=== PATIENT | male | born 1940 | race Caucasian/White ===

== ENCOUNTER 2020-06-18 02:42 | Outpatient (CLI) | payer MEDICARE, SELFPAY ==
[2020-06-18 18:02] LABS: SARS-CoV-2 RNA PCR Negative
== END 2020-06-18 02:43 | disposition home or self-care (01) ==
LOC: ANHCOVIDDT 02:43
PROVIDERS: PCP Emergency Medicine; Visit Provider Specialist
DX: Z01.812 Encounter for preprocedural laboratory examination (principal); Z20.828 Contact with and (suspected) exposure to other viral communicable diseases
CPT/HCPCS: 87635; C9803; U0003

== ENCOUNTER 2020-06-21 01:31 | Day surgery (SDC) | payer MEDICARE, SELFPAY ==
[2020-06-18 13:01] VITALS: BMI 27.1
[2020-06-21] VITALS (9 sets, daily range): BP systolic 97–120; BP diastolic 60–86; PULSE 70–78; RESP 17–23; TEMP 36.4; O2SAT 92–100
--- NOTE | 2020-06-21 | ECHO_ITS ---
Patient Info Name: Jhony Grayson Age: 80 years : 1940 Gender: Male Ht: 72 in Wt: 200 lbs BSA: 2.16 m2 HR: 136 bpm Heart Rhythm: Paced Exam Date: 06/21/2020 8:43 AM Exam Location: [facility] Patient Status: Outpatient Admit Date: 06/21/2020 Staff Ordering Physician: Tito Rodriguez MD Tie Hacker: Edward Fraser RDCS, RT Attending Provider: Tito Rodriguez MD Referring Physician: Jennifer NUÑEZ; Exam Type: CA echo transesophageal Study Info Indications I35.0 - Nonrheumatic aortic (valve) stenosis Complete two-dimensional, color flow and Doppler transesophageal study is performed. Summary 1. Left ventricular chamber dimension is severely enlarged. 2. Global systolic function is severely depressed. 3. There is no regurgitation of the bioprosthetic aortic valve. 4. The prosthetic valve leaflets appear to exhibit good leaflet excursion. Valve is not stenotic in appearance. Left Ventricle Left ventricular chamber dimension is severely enlarged. Global systolic function is severely depressed. Right Ventricle Right ventricular chamber dimension is mildly enlarged. Linear artifact in right ventricle suggestive of catheter(s), pacemaker lead(s), or ICD lead(s). Left Atria Left atrial chamber dimension is severely enlarged. Right Atria Right atrial chamber dimension is mildly enlarged. Aortic Valve There is Empty bioprosthetic aortic valve stenosis. There is no regurgitation of the bioprosthetic aortic valve. The prosthetic valve leaflets appear to exhibit good leaflet excursion. Valve is not stenotic in appearance. Pulmonic Valve The pulmonic valve is not well visualized. Mitral Valve The mitral valve has normal leaflets. Tricuspid Valve The tricuspid valve leaflets are not well visualized. Pericardium/Pleural The pericardium appears normal. Inferior Vena Cava Not well visualized inferior vena cava with Empty collapse upon inspiration consistent with Empty right atrial pressure, Empty. Aorta The aortic root size at the sinus of Valsalva is normal. Report Signatures
--- NOTE | 2020-06-21 08:48 | WPDMODSED ---
Moderate Sedation Note-Pt Data Patient Data Diagnosis: Prosthetic aortic valve stenosis ischemic cardiomyopathy Present Complaint: exertional dyspnea Procedure to be performed/Plan: transesophageal echocardiogram Allergies Allergy/AdvReac Type Severity Reaction Status Date / Time No Known Allergies Allergy Unverified 06/18/20 13:07 Home Medications Medication Instructions Recorded Confirmed Type meloxicam 7.5 mg tablet 7.5 mg PO DAILY 08/05/19 06/18/20 History pravastatin 80 mg tablet 80 mg PO DAILY 08/05/19 06/18/20 History aspirin 81 mg tablet 81 mg PO DAILY 09/16/19 06/18/20 History carvedilol 6.25 mg tablet 6.25 mg PO Q12H 09/16/19 06/18/20 History sacubitril 49 mg-valsartan 51 mg See Rx Instructions .ROUTE .COMPLEX 12/17/19 06/18/20 History tablet insulin aspar prot-insulin aspart See Rx Instructions .ROUTE 12/23/19 06/18/20 Rx 100 unit/mL (70-30) subcutaneous .COMPLEX #60 ml pen pen needle, diabetic 31 gauge x #200 each 12/23/19 Rx 3/16 spironolactone 25 mg tablet 25 mg PO DAILY #90 tablet 01/20/20 06/18/20 Rx duloxetine 30 mg capsule,delayed 30 mg PO DAILY #90 cap 01/21/20 06/18/20 Rx release tamsulosin 0.4 mg capsule 0.4 mg PO DAILY #90 cap 02/18/20 06/18/20 Rx sitagliptin 50 mg-metformin 500 mg See Rx Instructions .ROUTE 05/16/20 06/18/20 Rx tablet .COMPLEX #180 tablet furosemide 40 mg PO DAILY 06/18/20 06/18/20 History Sedation/Anesthesia: No previous sedation/anesthesia problems (including family history). [facility] Past Medical History Medical History CHF (congestive heart failure) Diabetes mellitus HTN (hypertension) Family History Family History Mother Family history of malignant neoplasm of bone Family history of malignant neoplasm, Onset Age: 31 Father Family history of coronary artery disease, Onset Age: 84 Other Diabetes mellitus Family history of cardiovascular disease Social History Social History Smoking status: Never smoker Alcohol intake: never Substance use: never Living arrangements: with family Gender identity (if verbalized by the patient): Male Sexual Orientation (if Verbalized by the Patient): Straight or Heterosexual Spiritual care concerns: No Mod Sed Physical Exam Physical Exam Pre Procedural Exam: Normal: Neck, Throat, Airway, Heart Rate, Heart Rhythm, Neuro Exam and Extremities and Variation: Appearance ( elderly white male no acute distress), Lungs ( breath sounds mildly diminished but otherwise clear) and Heart Size ( PMI enlarged and laterally displaced) Hours since solid foods: 12 Hours since liquid intake: 12 Internal Medicine - PN: Obj Da Vital Signs Vital Signs: Vital Signs - 24 hr 06/21/20 07:34 Temperature 36.4 C Pulse Rate 78 Respiratory Rate 17 Blood Pressure 98/62 L Pulse Oximetry 100 ASA Classification/Sedation ASA Classification/Sedation ASA Class: III Emergent: No Risks: Risks, benefits and alternatives explained and patient/family accepted plan for sedation. Patient re-evaluated immediately prior to sedation.
--- NOTE | 2020-06-21 09:08 | WPDCARDPROC ---
Cardiac Cath Procedure Note Date of procedure:: 06/21/20 Performing physician:: Tito Rodriguez MD Indication:: aortic valve replacement concern regarding prosthetic aortic stenosis ischemic cardiomyopathy Brief clinical history:: this is 80-year-old man with ischemic cardiomyopathy who has a defibrillator he also has a bioprosthetic aortic valve which is been implanted in 2005. There is echocardiographic evidence to suggest prosthetic aortic stenosis. He also has low ejection fraction. Procedure Procedure performed:: Transesophageal echocardiogram Sedation/Medication given:: fentanyl 50 mg Versed 4 mg case start time 8:51 a.m. case end time 9:07 a.m. sedation provided by Mariangel Barker RN, trained observer Estimated blood loss:: no blood loss Procedure note:: patient was brought to the cardiac catheterization lab holding area in the postabsorptive straight state. The oropharynx was sprayed with benzocaine. Following this a bite block was placed into position and transesophageal echocardiography was performed easily and without complication. The esophagus was intubated the examination was primarily directed towards imaging the aortic valve prosthesis. The aortic valve prosthesis was seen on 2D imaging there was color Doppler interrogation of the prosthesis and LV outflow tract and planimetry performed of the valve area. Following completion of the procedure the REBECA probe was withdrawn and the patient was recovered uneventfully. Procedure was uncomplicated. Findings:: The left atrium is severely dilated. The mitral valve leaflets appear unremarkable. The left ventricle is markedly dilated with very poor systolic contractility all segments are hypocontractile this is a global process ejection fraction is in the vicinity of 15%. The aortic valve is a bioprosthetic structure which was anterior wound visualized in several projections. Visualization of the leaflets was somewhat challenging due to acoustical shadowing with the struts. The leaflets however appear to be relatively mobile and easily pliable. They do not appear to be significantly restricted on visual inspection. There is no color Doppler evidence of aortic valve or perivalvular regurgitation. Direct planimetry of the valve was challenging as it was difficult to visualize the orifice with the struts. Valve area measures at least 1.0 cm2. Once again the leaflets are mobile and exhibit exhibit good leaflet excursion. Conclusion:: Transesophageal echocardiographic examination of the for of bioprosthetic aortic valve demonstrating the leaflets to have a mobile and pliable appearance with no Doppler evidence of regurgitation. Aortic valve area was plan admit her at 1.0 cm2 acoustical shadowing with the valve struts across the valve orifice. Visually this valve does not appear to be significantly stenotic. Tito Rodriguez MD FACC
--- NOTE | 2020-06-21 11:10 | SUR.PHASEII ---
1045-pt given D/C orders and instructions. Questions answered and verbalized understanding. AOx4. PIV removed intact. Taken via wheelchair to waiting vehicle. No distress noted or verbalized at time of departure.
== END 2020-06-21 11:00 | disposition home or self-care (01) ==
PROVIDERS: PCP Emergency Medicine; Visit Provider Specialist
PROC: (CPT 93312; principal; 2020-06-21 08:30)
DX: R93.1 Abnormal findings on diagnostic imaging of heart and coronary circulation (principal); R06.09 Other forms of dyspnea; I25.5 Ischemic cardiomyopathy; Z95.2 Presence of prosthetic heart valve; Z95.810 Presence of automatic (implantable) cardiac defibrillator; I11.0 Hypertensive heart disease with heart failure; I50.9 Heart failure, unspecified; E11.9 Type 2 diabetes mellitus without complications; Z79.4 Long term (current) use of insulin; Z79.84 Long term (current) use of oral hypoglycemic drugs; Z79.82 Long term (current) use of aspirin
CPT/HCPCS: 93312; 93320; 93325; J2250; J3010; J7040

== ENCOUNTER 2021-05-05 10:58 | Outpatient (CLI) | payer MEDICARE, SELFPAY ==
--- NOTE | 2021-05-05 11:30 | NEURO_ITS ---
Impression: # Complains of numbness of left thumb and index finger. # Severe left Carpal Tunnel Syndrome. 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 # Needle/EMG exam mildly abnormal in left APB. Nerve Conduction Studies Anti Sensory Summary Table Stim Site NR Peak (ms) P-T Amp (?V) Site1 Site2 Delta-P (ms) Dist (cm) Erich (m/s) Left Median Anti Sensory (2-3nd Digit) NO RESPONSE Wrist 8.5 13.6 Wrist 2-3nd Digit 8.5 14.0 16 Wrist NR Wrist 2-3nd Digit 8.5 14.0 16 Left Radial Anti Sensory (Base 1st Digit) Wrist 2.7 12.8 Wrist Base 1st Digit 2.7 0.0 Left Ulnar Anti Sensory (5th Digit) Wrist 2.9 42.8 Wrist 5th Digit 2.9 14.0 48 Motor Summary Table Stim Site NR Onset (ms) O-P Amp (mV) Site1 Site2 Delta-0 (ms) Dist (cm) Erich (m/s) Left Median Motor (Abd Poll Brev) Wrist 9.1 1.6 Elbow Wrist 5.5 30.0 55 Elbow 14.6 0.9 Left Ulnar Motor (Abd Dig Minimi) Wrist 2.7 1.4 A Elbow Wrist 6.8 33.0 49 A Elbow 9.5 1.2 B Elbow Wrist 4.6 24.0 52 B Elbow 7.3 0.6 F Wave Studies NR F-Lat (ms) L-R F-Lat (ms) Left Median (Mrkrs) (Abd Poll Brev) 33.22 Left Ulnar (Mrkrs) (Abd Dig Min) 29.85 EMG Side Muscle Nerve Root Ins Act Fibs Amp Dur Recrt Comment Left 1stDorInt Ulnar C8-T1 Nml Nml Nml Nml Nml Left Ext Indicis Radial (Post Int) C7-8 Nml Nml Nml Nml Nml Left Ext Digitorum Radial (Post Int) C7-8 Nml Nml Nml Nml Nml Left BrachioRad Radial C5-6 Nml Nml Nml Nml Nml Left PronatorTeres Median C6-7 Nml Nml Nml Nml Nml Left Abd Poll Brev Median C8-T1 Nml Nml Incr >12ms Reduced MTDD
== END 2021-05-05 10:59 | disposition home or self-care (01) ==
LOC: ANHNEURO 10:59
PROVIDERS: PCP Internal Medicine; Visit Provider Internal Medicine
DX: G56.02 Carpal tunnel syndrome, left upper limb (principal); G56.22 Lesion of ulnar nerve, left upper limb; R20.0 Anesthesia of skin; R20.2 Paresthesia of skin
CPT/HCPCS: 95886; 95909

== ENCOUNTER 2021-06-30 09:53 | Outpatient (CLI) | payer MEDICARE, SELFPAY ==
--- NOTE | 2021-06-30 10:00 | ECG_ITS ---
Measurements Intervals [place] Rate: 74 P: 115 TX: 201 QRS: -76 QRSD: 218 T: 111 QT: 467 QTc: 519 Interpretive Statements ELECTRONIC ATRIAL PACEMAKER ELECTRONIC VENTRICULAR PACEMAKER BASELINE ARTIFACT- I, II, AVR NO FURTHER INTERPRETATION IS POSSIBLE ATYPICAL ECG Electronically Signed On 06-30-2021 19:27:56 [employer]ANGER [employer]ER by Harshal Delatorre D.O.
[2021-06-30 11:30] LABS: Anion Gap 8 mmol/L (8-16); Blood Urea Nitrogen 39 mg/dL (9-20); Calcium 9.6 mg/dL (8.4-10.2); Carbon Dioxide 30 mmol/L (22-30); Chloride 103 mmol/L (98-107); Estimated Glomerular Filt Rate 45; Glucose 165 mg/dL (65-110); Potassium 4.8 mmol/L (3.4-5.0); Sodium 141 mmol/L (137-145)
== END 2021-06-30 09:54 | disposition home or self-care (01) ==
LOC: ANHSURGERY 09:58
PROVIDERS: Anesthesiology; PCP Internal Medicine; Visit Provider Orthopaedic Surgery
DX: Z01.818 Encounter for other preprocedural examination (principal); E11.9 Type 2 diabetes mellitus without complications; I10 Essential (primary) hypertension; R94.31 Abnormal electrocardiogram [ECG] [EKG]
CPT/HCPCS: 36415; 80048; 93005

== ENCOUNTER 2021-07-05 01:51 | Day surgery (SDC) | payer MEDICARE, SELFPAY ==
[2021-06-29 08:33] VITALS: BMI 27.1
--- NOTE | 2021-06-29 11:12 | PC.NURSE ---
Report to the Outpatient Waiting Room, entrance under the green pavilion located off [facility], at time ___12:00PM____ on date _07/05/21 . OR Time: ___2:00PM____. - You and your visitor will be asked a series of questions to screen for COVID 19 for your protection. - A mask is required within the hospital. - Only one visitor is allowed at this time. Patient visitors will be guided where to wait when not with patient. Preoperative COVID Testing Requirements: No COVID Test needed if: (proof is required; if not received patient will have Rapid Test prior to entry) - Patient has received COVID Vaccine at least 14 days prior to procedure date or - Patient has positive COVID test result within last 90 days of surgery date. COVID Test needed if above criteria is not met If not COVID vaccinated a COVID test must be conducted within 72 hours of surgery and patient is asked to isolate self from time of testing until procedure. You will go to the [facility] for your COVID testing. The [facility] Testing site is located at the corner of [address] [facility]. You will only be called if COVID results are positive and your surgeon may reschedule your elective surgery date. Patients may have clear liquids (water, carbonated beverages, clear teas, apple juice) until 3 hours prior to surgery with a maximum of 20 ounces. - No food from midnight until time of surgery - Infants may have breast milk until 4 hours before surgery, infant formula 6 hours prior to surgery. - Children will be allowed to drink immediately following surgery. If applicable, please bring a bottle or sippy cup to assist with drinking. Juice, water, soda, and popsicles are readily available. For infants on formula, please bring formula the day of surgery. Pacifiers are allowed. Take the following medications with a SIP of water the morning of surgery: ___CARVEDILOL, 1/2 DOSE INSULIN(12 UNITS) Medications to discontinue per physician ____HOLD ASPIRIN PER MD( CALLING OFFICE) Date to take last dose Please no make-up, nail tamazight, hairspray, perfume, deodorant, or body powder the day of surgery. No jewelry (including any body piercings) or valuables the day of surgery, leave them at home. Please take a shower or bath the night before, or the morning of, surgery with an antibacterial soap. Wear comfortable, loose fitting clothing. Children are encouraged to wear pajamas. - Jewelry must be removed prior to entering the operating room. Rings and piercings that are not removed may be cut off. - The hospital will not accept responsibility for valuables. - Please leave all valuables, including medications, at home the day of surgery. If you are going home after surgery, a licensed class a truck driver must drive you home. - NO public transportation without another adult. - We recommend that an adult stay with you for 24 hours following discharge. - We also recommend that you do not drive, make important decision, drink alcoholic beverages, or take any drugs that were not prescribed by your health care provider for at least 24 hours after your discharge time. For Pediatric surgeries, we recommend two adults accompany the child home (only one inside the building at this time). Follow any additional instructions given to you from your surgeon. Telephone instructions given to ___PATIENT AND SPOUSE and asked if any additional questions and then verbalized understanding. Patient advised to call surgeon office or pre surgery nurse liaison [phone] if any additional questions.
--- NOTE | 2021-07-04 14:01 | WPDANESEPPF ---
Anes - Initial Pre Proc Eval Procedure: Operation Date: 07/05/21 14:30 Proposed Procedures p Left Carpal Tunnel Repair - Landon Gtz MD Date/Time: 07/04/21 14:01 Surgeon: Landon Gtz MD Pre Op Diagnosis: left carpal tunnel syndrome Patient Data Age: 81 Gender: M Height: 1.83 m Weight: 91 kg Allergies Allergy/AdvReac Type Severity Reaction Status Date / Time No Known Allergies Allergy Verified 07/05/21 12:37 Home Medications Medication Instructions Recorded Confirmed Type meloxicam 7.5 mg tablet 7.5 mg PO HS 08/05/19 07/05/21 History pravastatin 80 mg tablet 80 mg PO DAILY 08/05/19 07/05/21 History aspirin 81 mg tablet 81 mg PO DAILY 09/16/19 07/05/21 History carvedilol 6.25 mg tablet 6.25 mg PO Q12H 09/16/19 07/05/21 History sacubitril 49 mg-valsartan 51 mg 1 tablet PO BID 12/17/19 07/05/21 History tablet pen needle, diabetic 31 gauge x #200 each 11/02/20 06/27/21 Rx 11/02 chlorhexidine gluconate 4 % 1 applic TOPICAL ONCE #237 ml 06/28/21 07/05/21 Rx topical liquid Janumet 1 tablet PO BID 06/29/21 07/05/21 History duloxetine 30 mg PO HS 06/29/21 07/05/21 History furosemide 40 mg PO QAM 06/29/21 07/05/21 History insulin asp prt-insulin aspart 24 unit SUBCUT BID 06/29/21 07/05/21 History [Novolog Mix 70-30FlexPen U-100] spironolactone 25 mg PO QAM 06/29/21 07/05/21 History tamsulosin 0.4 mg PO DAILY 06/29/21 07/05/21 History Patient hx anesthesia problems: none Family hx anesthesia problems: none Results Review: All pre-operative results and documents have been reviewed as part of the pre-operative evaluation. [facility] Past Medical History Medical History (Updated 07/04/21 @ 14:05 by Yang Hyatt MD) Aortic stenosis CHF (congestive heart failure) 07/09 ef 10-13% Diabetes mellitus HTN (hypertension) Hx of myocardial infarction Hyperlipidemia Ischemic cardiomyopathy Pacemaker Family History Family History Mother Family history of malignant neoplasm of bone Family history of malignant neoplasm, Onset Age: 31 Father Family history of coronary artery disease, Onset Age: 84 Other Diabetes mellitus Family history of cardiovascular disease Social History Social History Smoking status: Never smoker Alcohol intake: never Substance use: never Living arrangements: with family Additional living arrangements comments: Gender identity (if verbalized by the patient): Male Sexual Orientation (if Verbalized by the Patient): Straight or Heterosexual Spiritual care concerns: No Anes - Eval Final PreProcedure Day of Procedure 07/04/21 14:01 Patient weight: overweight Heart: regular rate and rhythm Lungs: clear to auscultation and normal air movement Airway: Mallampati scale class II Neurological: alert and oriented Last oral intake: >/= 8 hours ASA classification: IV Emergent: no Anesthetic plan: proceed Anesthesia type and monitoring: general GIVS Results Review: All pre-operative results and documents have been reviewed as part of the pre-operative evaluation. Informed Consent: The patient's anesthetic plan and its attendant risks and benefits were discussed with the patient/family/POA. Questions were solicited and answers provided to the satisfaction of the patient/family/POA.
--- NOTE | 2021-07-05 07:18 | WPDHPUPDATE1 ---
History and Physical Update Update Date/Time: 07/05/21 07:18 History and Physical has been reviewed, including an updated exam of the patient. There are NO changes in the patient's condition. Risks, benefits, and alternatives have been discussed and questions answered. Patient agrees to proceed with procedure.
[2021-07-05 12:33] VITALS: BP 97/66; PULSE 73; RESP 20; TEMP 36.4; O2SAT 100
[2021-07-05] MEDS: CELECOXIB 200 MG CAPSULE PO (12:55)
[2021-07-05] MEDS: ACETAMINOPHEN 500 MG TABLET 1000 MG PO (12:55)
[2021-07-05] MEDS: LACTATED RINGERS 1,000 ML 30 ML IV CONT (13:00)
[2021-07-05 13:16] LABS: Glucose Point of Care 73 mg/dl (65-105)
[2021-07-05] MEDS: ceFAZolin 2 GM/D5W 50 ML 2 GM/50 ML BAG IVPB (13:57)
[2021-07-05] MEDS: BUPIVACAINE HCL 0.5% PF 30 ML VIAL INFILTRATE (14:15)
[2021-07-05 14:45] VITALS: BP 89/37; PULSE 82; RESP 12; O2SAT 92
[2021-07-05 14:53] LABS: Glucose Point of Care 66 mg/dl (65-105)
--- NOTE | 2021-07-05 15:04 | SUR.PHASEII ---
BG was 66 on arrival from the OR. Patient was awake and alert. RN gave patient apple juice and aleah crackers and will recheck before discharge.
[2021-07-05 15:15] VITALS: BP 82/46; PULSE 72
--- NOTE | 2021-07-05 15:18 | SUR.PHASEII ---
BG was 82 on recheck.
[2021-07-05 15:32] LABS: Glucose Point of Care 82 mg/dl (65-105)
[2021-07-05 15:35] VITALS: BP 93/55; PULSE 70
--- NOTE | 2021-07-05 15:48 | W.PM.PROC2 ---
Procedure Note - Detailed Date of Procedure 07/05/21 Pre-op Diagnosis left carpal tunnel syndrome Post-op Diagnosis same Procedure Performed LEFT CTR Surgeon Landon Gtz MD Anesthesia general Description of Procedure THE LEFT UPPER EXTREMITY WAS PREPPED AND DRAPED IN THE STERILE FASHION. THE CARPAL TUNNEL WAS MARKED FROM THE FLEXED RING FINGER. THE TORNEQUET WAS INFLATED. THE INCISION WAS MADE AT THE MID PALM DOWN THROUGH THE SUBCUTANEOUS TISSUES. THE PALMAR FASCIA WAS IDENTIFIED. AN INCISION WAS MADE THROUGH THE PALMAR FASCIA UNTIL THE CARPAL TUNNEL WAS ENTERED. A MOSQUITO HEMOSTAT WAS USED TO PROTECT THE MEDIAN NERVE WHILE THE INCISION TO THE PALMAR FASCIA WAS COMPLETE PROXIMALLY AND DISTALLY TO THE CARDINAL LINE. NEXT, THE TRANSVERSE CARPAL LIGAMENT WAS IDENTIFIED. A FREIER ELEVATOR WAS USED TO SEPARATE THE NERVE FROM THE LIGAMENT. A METZENBAUM SCISSORS WAS THEN USED TO INCISE THE TRANSVERSE CARPAL LIGAMENT UNTIL THERE WAS A COMPLETE RELEASE OF THE CARPAL TUNNEL. THE MEDIAN NERVE WAS INTACT. THE TOURNEQUET WAS DEFLATED. THE BLEEDERS WERE CAUTERIZED. THE WOUND WAS WASHED. THE SKIN WAS APPROXIMATED WITH 4-0 NYLON SUTURE. STERILE DRESSING WAS APPLIED. PATIENT WAS EXTUBATED AND SENT TO THE RECOVERY ROOM. Estimated Blood Loss -2.0 Complications No immediate complications Condition stable Disposition PACU
== END 2021-07-05 15:50 | disposition home or self-care (01) ==
PROVIDERS: PCP Internal Medicine; Visit Provider Orthopaedic Surgery
PROC: (CPT 64721; principal; 2021-07-05 14:30)
DX: G56.02 Carpal tunnel syndrome, left upper limb (principal); I11.0 Hypertensive heart disease with heart failure; I50.9 Heart failure, unspecified; I25.2 Old myocardial infarction; E78.5 Hyperlipidemia, unspecified; I35.0 Nonrheumatic aortic (valve) stenosis; I25.5 Ischemic cardiomyopathy; E11.9 Type 2 diabetes mellitus without complications; Z95.0 Presence of cardiac pacemaker; Z79.82 Long term (current) use of aspirin; Z79.84 Long term (current) use of oral hypoglycemic drugs; Z79.4 Long term (current) use of insulin
CPT/HCPCS: 64721; 36415; 80048; 82948; 93005; A9270; J0690; J3010; J7120

== ENCOUNTER 2022-01-05 16:26 | Inpatient (IN) | payer MEDICARE, SELFPAY ==
[2022-01-05] VITALS (29 sets, daily range): BP systolic 84–114; BP diastolic 62–70; PULSE 69–80; RESP 18–33; TEMP 36.8; O2SAT 92–100; BMI 27.9
--- NOTE | ~2022-01-05 | US_ITS ---
EXAMINATION: US renal BI DATE: 01/06/2022 08:31 INDICATION: Acute on chronic kidney disease TECHNIQUE: Multiple grayscale and Doppler ultrasound images of the kidneys were obtained. COMPARISON: None. FINDINGS: The right kidney measures 11.9 x 5.9 x 5.6 cm. The left kidney measures 12.2 x 6.1 x 5.0 cm . The kidneys demonstrate normal parenchymal echogenicity. There is no hydronephrosis. The bladder is decompressed catheter. IMPRESSION: 1. Normal kidneys without hydronephrosis. Reviewed, dictated and finalized at location A.
--- NOTE | ~2022-01-05 | XR_ITS ---
EXAMINATION: XR chest 2V DATE: 01/06/2022 18:34 INDICATION: Shortness of breath. TECHNIQUE: Frontal and lateral views of the chest were obtained on 3 radiographs. COMPARISON: Chest 2 views 01/05/2022 FINDINGS: There is no pneumonia, pleural effusion, or pneumothorax. Cardiomegaly is noted. Median katia rnotomy wires and mediastinal surgical clips are seen, likely from prior coronary artery bypass graft ing. There is a right chest wall pacer with leads in the right atrium and right ventricle. There is m ild chronic anterior wedging of a midthoracic vertebral body. IMPRESSION: 1. Cardiomegaly. Reviewed, dictated and finalized at location A. IMPRESSION: 1. Cardiomegaly.
--- NOTE | ~2022-01-05 | XR_ITS ---
EXAMINATION: XR chest 2V DATE: 01/05/2022 17:10 INDICATION: Cough, shortness of breath and wheezing TECHNIQUE: PA and lateral views of the chest were obtained. COMPARISON: Chest radiograph dated 10/01/2016 FINDINGS: The lungs remain clear with no focal airspace opacities, pulmonary edema, pleural effusion or pneumot horax. Cardiomegaly. Median sternotomy wires, ostial markers and mediastinal surgical clips consisten t with prior coronary artery bypass grafting. Dual lead pacemaker/AICD seen with leads projecting ove r the expected locations of the right atrium and right ventricle. Mild thoracic spondylosis with umbrella finisher wendy mild anterior wedging of a couple mid thoracic vertebral bodies. IMPRESSION: 1. Cardiomegaly. No acute cardiopulmonary disease. Reviewed, dictated and finalized at location A.
--- NOTE | 2022-01-05 16:33 | ECG_ITS ---
Measurements Intervals [place] Rate: 71 P: ID: 0 QRS: -77 QRSD: 212 T: 102 QT: 462 QTc: 504 Interpretive Statements ELECTRONIC VENTRICULAR PACEMAKER BASELINE ARTIFACT- I NO FURTHER INTERPRETATION IS POSSIBLE ATYPICAL ECG Electronically Signed On 01-05-2022 19:57:43 CDT by Harshal Delatorre D.O.
[2022-01-05 16:47] LABS: Basophils Absolute Auto 0.1 K/mm3 (0.0-0.1); Basophils Percent Auto 0.7 % (0.2-1.2); Eosinophils Absolute Auto 0.2 K/mm3 (0-0.3); Eosinophils Percent Auto 3.2 % (0-4.4); Hematocrit 41.7 % (42.0-52.0); Hemoglobin 12.8 g/dL (14.0-18.0); Immature Granulocyte Absolute 0.03 K/mm3 (0.00-0.031); Immature Granulocyte Percent A 0.4 % (0-0.5); Immature Platelet Fraction Pct 7.7 % (0.9-11.2); Lymphocytes Absolute Auto 0.73 K/mm3 (0.9-3.2); Lymphocytes Percent Auto 10.1 % (18.3-44.2); Mean Corpuscular HGB Conc 30.7 g/dl (32-36); Mean Corpuscular Hemoglobin 32.2 pg (26-34); Mean Platelet Volume 11.6 fl (7.4-10.4); Monocytes Absolute Auto 0.7 K/mm3 (0.1-0.6); Monocytes Percent Auto 9.8 % (2.6-8.5); Neutrophils Absolute Auto 5.5 K/mm3 (1.3-6.7); Neutrophils Percent Auto 75.8 % (45.5-73.1); Platelet Count Result 130 k/mm3 (150-375); Red Blood Count 3.97 M/mm3 (4.6-6.20); Red Cell Distribution Width 14.3 % (11.5-14.5); White Blood Count 7.2 K/mm3 (4.5-10.0)
[2022-01-05 16:55] LABS: Alanine Aminotransferase 28 U/L (6-50); Alkaline Phosphatase 85 U/L (38-126); Anion Gap 9 mmol/L (8-16); Aspartate Amino Transferase 44 U/L (17-59); Bilirubin,Total 1.7 mg/dL (0.2-1.3); Blood Urea Nitrogen 47 mg/dL (9-20); Calcium 9.2 mg/dL (8.4-10.2); Carbon Dioxide 23 mmol/L (22-30); Chloride 105 mmol/L (98-107); Estimated CRCL calculation 32 ml/min; Estimated Glomerular Filt Rate 36; Glucose 219 mg/dL (65-110); Potassium 5.2 mmol/L (3.4-5.0); Sodium 137 mmol/L (137-145)
[2022-01-05 16:57] LABS: INR 3.8; Prothrombin Time 36.6 Seconds (11.1-14.7)
[2022-01-05 16:58] LABS: Partial Thromboplastin Time 50.5 SECONDS (22.3-36.8)
--- NOTE | 2022-01-05 17:01 | ED.GENADULT ---
HPI - General Adult General Chief complaint: Shortness of Breath/Dyspnea Stated complaint: sob, cough Time Seen by Provider: 01/05/22 16:48 History of Present Illness HPI narrative: Patient is an 81-year-old male with a history of heart failure (s/p pacemaker), CAD status post CABG, insulin-dependent diabetes, hypertension, hyperlipidemia, here for evaluation of shortness of breath and productive cough for the past 3 days. Patient states his symptoms have worsened, and now he is producing yellow sputum with his cough. Additionally reporting some nasal drainage and congestion, fatigue. Patient has no chest pain, abdominal pain, nausea, weight gain, increased leg swelling, sick contacts. He has no home oxygen requirement, and denies history of smoking, COPD or asthma. He has been fully vaccinated against COVID (x4) and flu. Last echo 07/09 with EF of 10-13%. On entresto, Coreg and spironolactone along with Lasix Related Data Home Medications Medication Instructions Recorded Confirmed meloxicam 7.5 mg tablet 7.5 mg PO HS 08/05/19 07/05/21 pravastatin 80 mg tablet 80 mg PO DAILY 08/05/19 07/05/21 aspirin 81 mg tablet 81 mg PO DAILY 09/16/19 07/18/21 carvedilol 6.25 mg tablet 6.25 mg PO Q12H 09/16/19 07/18/21 sacubitril 49 mg-valsartan 51 mg 1 tablet PO BID 12/17/19 07/18/21 tablet Janumet 1 tablet PO BID 06/29/21 07/18/21 duloxetine 30 mg PO HS 06/29/21 07/18/21 furosemide 40 mg PO QAM 06/29/21 07/18/21 insulin asp prt-insulin aspart 24 unit SUBCUT BID 06/29/21 07/18/21 [Novolog Mix 70-30FlexPen U-100] spironolactone 25 mg PO QAM 06/29/21 07/18/21 tamsulosin 0.4 mg PO DAILY 06/29/21 07/18/21 Allergies Allergy/AdvReac Type Severity Reaction Status Date / Time No Known Allergies Allergy Verified 07/18/21 12:07 Review of Systems Review of Systems: Gen: Denies fevers or chills Eyes: Denies eye pain or visual change ENT: Denies congestion Respiratory: Reports shortness of breath and cough CV: Denies chest pain or palpitations GI: Denies abdominal pain nausea, emesis or diarrhea denies burning, urgency, frequency or hematuria Musculoskeletal: Denies back pain or muscle pain Neuro: Denies numbness, tingling, weakness or focal weakness Skin: Denies rash Except as documented, all other systems reviewed and negative All systems reviewed & are unremarkable except as noted in HPI and below PMFSH Past Medical History Medical History Aortic stenosis CHF (congestive heart failure) 07/09 ef 10-13% Diabetes mellitus HTN (hypertension) Hx of myocardial infarction Hyperlipidemia Ischemic cardiomyopathy Pacemaker Family History Family History Mother Family history of malignant neoplasm of bone Family history of malignant neoplasm, Onset Age: 31 Father Family history of coronary artery disease, Onset Age: 84 Other Diabetes mellitus Family history of cardiovascular disease Social History Social History Alcohol intake: never Substance use: never Additional living arrangements comments: Gender identity (if verbalized by the patient): Male Sexual Orientation (if Verbalized by the Patient): Straight or Heterosexual Spiritual care concerns: No Exam Narrative: APPEARANCE: Well appearing, no pain in distress, well-nourished. Head: normocephalic and atraumatic. EYES: PERRLA/EOMI, conjunctivae clear NOSE: No nasal drainage EARS: External ear normal in appearance THROAT: Oropharynx is clear. Mucous membranes are moist. NECK: Supple. No adenopathy, no masses. RESPIRATORY: Tachypneic. Expiratory wheezing in the right upper lobe. CARDIOVASCULAR: Patient has a systolic ejection murmur. ABDOMINAL: Patient has a reducible umbilical hernia. Normoactive bowel sounds. Soft, nontender, nondistended. No reboun
[2022-01-05 17:12] LABS: NT Pro B Type Natriuretic Pept 9640 pg/mL (5-100); Troponin I 0.036 ng/mL (0.000-0.034)
[2022-01-05] MEDS: ALBUTEROL SULFATE NEB 2.5 MG/3 ML INH 1.25 MG INHALATION (17:20)
[2022-01-05 18:48] LABS: Influenza A QL RT-PCR Negative (Negative); Influenza B QL RT-PCR Negative (Negative); SARS-CoV-2 RNA PCR Negative
--- NOTE | 2022-01-05 19:35 | PM.IMHP ---
H&P: HPI History of Present Illness Date/Time: 01/05/22 19:35 Chief Complaint: Shortness of breath. Narrative: This is an 81-year-old male with past medical history significant for coronary artery disease status post coronary artery bypass graft and redo, aortic stenosis, status post bioprosthetic valve replacement, ischemic cardiomyopathy, systolic heart failure, implantable cardioverter-defibrillator, type 2 diabetes mellitus, obstructive sleep apnea on CPAP at nighttime, chronic kidney disease. Patient presents to the emergency room due to worsening shortness of breath ongoing for the last 3 days or so, no dizziness, no lightheadedness, no syncope, or near syncope, cough productive of yellowish sputum, patient denies any fevers, rigors, chills, known no nausea, no vomiting, no diarrhea, no abdominal pain, no chest pain, no palpitations, patient with bilateral lower extremity swelling, states that has not been able to sleep well because gets often times up to use the bathroom. In emergency room patient did require supplemental oxygen by nasal cannula 2 L which he denies using at home. Preliminary workup was significant for a creatinine of 1.8 BUN is 47, BNP of 9,000, troponins initially 0.036 EKG shows paced rhythm a chest x-ray did not show any infiltrates. Patient is being admitted for further evaluation management and treatment. Review of Systems Review of Systems: Shortness of breath, cough productive of yellow sputum. Constitutional: Constitutional: Denies chills, Denies fever(s) and Denies night sweats Eyes: Eyes: Denies change in vision ENT: Denies dysphagia, Denies vertigo, Denies dizziness, Denies nasal congestion, Denies nasal discharge, Denies nasal obstruction and Denies odynophagia Cardiovascular: Cardiovascular: Denies syncope, Reports pedal edema, Denies edema, Denies irregular heart rhythm, Reports leg edema, Denies lightheadedness, Denies radiating jaw, neck or arm pain, Denies palpitations, Reports dyspnea, Reports dyspnea on exertion, Denies orthopnea and Denies paroxysmal nocturnal dyspnea Respiratory: Respiratory: Reports change in phlegm color (Yellowish), Reports cough and Reports excessive phlegm production Gastrointestinal: Gastrointestinal: Denies abdominal pain, Denies dyspepsia, Denies heartburn, Denies nausea and Denies vomiting Genitourinary: Genitourinary: Denies dysuria Musculoskeletal: Musculoskeletal: Denies arthralgias and Denies joint swelling Integumentary/Breasts: Skin/Breast: Denies rash Neurologic: Denies focal weakness and Denies Sensory deficit (Neuro) Psychiatric: Psychiatric: Reports no additional psychiatric complaints and Reports as per HPI Endocrine: Endocrine: Denies cold intolerance, Denies fatigue, Denies flushing, Denies heat intolerance, Denies polyphagia, Denies polydipsia and Denies palpitations Hematologic/Lymphatic: Hematologic/Lymphatic: Reports no additional hematologic/lymphatic complaints and Reports as per HPI Allergic/Immunologic: Allergic/Immunologic: Reports no additional allergic/immunologic complaints and Reports as per HPI PMFSH Past Medical History Medical History Aortic stenosis CHF (congestive heart failure) 07/09 ef 10-13% Diabetes mellitus HTN (hypertension) Hx of myocardial infarction Hyperlipidemia Ischemic cardiomyopathy Pacemaker Family History Family History Mother Family history of malignant neoplasm of bone Family history of malignant neoplasm, Onset Age: 31 Father Family history of coronary artery disease, Onset Age: 84 Other Diabetes mellitus Family history of cardiovascular disease Social History Social History Smoking status: Never smoker Second hand tobacco smoke exposure: No Alcohol intake: never Substance use: never Additiona
--- NOTE | 2022-01-05 23:32 | PCRCNOTE ---
RT asked Pt. about home CPAP Pt. states they wear one at home but does not want one tonight. Rt informed Pt. one can be provided at any time and to call if mind was changed.
[2022-01-06] VITALS (21 sets, daily range): BP systolic 112–119; BP diastolic 58–72; PULSE 68–79; RESP 16–24; TEMP 36.6–36.8; O2SAT 93–100
--- NOTE | 2022-01-06 | ECHO_ITS ---
Patient Info Name: Jhony Grayson Age: 81 years : 1940 Gender: Male Ht: 72 in Wt: 206 lbs BSA: 2.20 m2 HR: 76 bpm BP: 118 / 70 mmHg Heart Rhythm: Paced Technical Quality: Fair Exam Date: 01/06/2022 1:39 PM Exam Location: [facility] Pulmonary Exam Room: [facility] Patient Status: Inpatient Admit Date: 01/06/2022 Staff Ordering Physician: Italia Kraft MD Manager Strategic: Mary Kapoor RDCS Attending Provider: Italia Kraft MD Referring Physician: Swapnil BEAVER; Exam Type: CA echo dop color flow w con Study Info Indications - AVR SOB AICD Complete two-dimensional, color flow and Doppler transthoracic echocardiogram is performed with contrast to opacify the left ventricle and to improve the deliniation of the left ventricle endocardial borders. Contrast/Agitated Saline Contrast/Ag. Saline: Definity Amount: 2.00 ml Administered By: Mary Kapoor [facility] Existing IV Access: Yes IV Access Condition: patent with no signs of infiltration Summary 1. Left ventricular chamber dimension is severely enlarged. 2. Left ventricular systolic function is severely reduced, estimated at 15-20%. 3. Right ventricular chamber dimension is moderately enlarged. 4. Linear artifact in right ventricle suggestive of catheter(s), pacemaker lead(s), or ICD lead(s). 5. Biatrial dilation. 6. Suspect aortic valve is a bioprosthesis which appears to be functioning normally but is not well visualized. 7. Mild mitral regurgitation resulting from annular dilation. 8. Stigmata of low cardiac output. Left Ventricle Left ventricular chamber dimension is severely enlarged. Left ventricular systolic function is severely reduced, estimated at 15-20%. The left ventricular diastolic function is grade I diastolic dysfunction. Right Ventricle Right ventricular chamber dimension is moderately enlarged. Right ventricular systolic function is reduced. Linear artifact in right ventricle suggestive of catheter(s), pacemaker lead(s), or ICD lead(s). Left Atria Left atrial chamber dimension is severely enlarged. Right Atria Right atrial chamber dimension is moderately enlarged. Linear artifact in the right atrium suggestive of catheter(s), pacemaker lead(s), or ICD lead(s). Aortic Valve The bioprosthetic aortic valve is not well visualized. Pulmonic Valve The pulmonic valve is normal. There is mild pulmonic regurgitation. Mitral Valve The mitral valve has normal leaflets. There is mild mitral valve regurgitation. Tricuspid Valve The tricuspid valve leaflets are normal. There is mild tricuspid valve regurgitation. Pericardium/Pleural The pericardium appears normal. Aorta The aortic root size at the sinus of Valsalva is normal. Left Ventricular Outflow Tract Name Value Normal LVOT 2D LVOT Diameter 2.06 cm LVOT Doppler LVOT Peak Gradient 3 mmHg LVOT Mean Gradient 1 mmHg LVOT VTI 16.67 cm LVOT VTI/AV VTI Ratio 0.40 LVOT Stroke
[2022-01-06] MEDS: ALBUTEROL SULFATE NEB 2.5 MG/3 ML INH 5 MG INHALATION ×2 (00:40→06:11)
[2022-01-06] MEDS: IPRATROPIUM BR 0.02% INH SOLN 0.5 MG/2.5 ML VIAL INHALATION ×2 (00:40→06:11)
[2022-01-06] MEDS: cefTRIAXone 2 GM in SODIUM CHLORIDE 0.9% IV 100 ML 200 ML IVPB ×2 (01:59→21:08)
[2022-01-06 04:45] LABS: Troponin I 0.045 ng/mL (0.000-0.034)
[2022-01-06 08:43] LABS: Glucose Point of Care 267 mg/dl (65-105)
[2022-01-06] MEDS: AMIODARONE HCL 200 MG TABLET PO (09:07)
[2022-01-06] MEDS: ASPIRIN 81 MG CHEWABLE TABLET PO (09:07)
[2022-01-06] MEDS: TAMSULOSIN HCL 0.4 MG CAPSULE PO (09:07)
[2022-01-06] MEDS: PRAVASTATIN SODIUM 20 MG TABLET 80 MG PO (09:07)
[2022-01-06] MEDS: carvediloL 6.25 MG TABLET PO ×2 (09:08→20:25)
[2022-01-06] MEDS: INSULIN ASPART MIX 70/30 100 UNITS/ML 30 UNITS SUB-Q (09:42)
[2022-01-06 11:22] LABS: Glucose Point of Care 331 mg/dl (65-105)
--- NOTE | 2022-01-06 11:35 | PM.CNNEP ---
Assessment and Plan Additional Plan 1. Jhony has chronic kidney disease. His GFR reflects stage IIIA. Etiology of this is probably due to hypertension, diabetes, and chronic pre renal azotemia from his very poorly functioning heart. There other much less likely causes such as glomerulonephritis, interstitial nephritis, infiltrated disease, and obstruction. Will check a urinalysis, urine lytes, CPK, and a renal ultrasound. 2. The patient has a mild rise in his creatinine. One possibility would be renal venous hypertension. However usually this happens in the setting of gross volume overload but his chest x-ray is clear and he does not really have very much swelling. So I think this would be less likely. One possibility is that the atrial fibrillation decreased his effective ejection fraction and so he is just more pre renal. Dobutamine might help in this case. I have reach to Dr. Rodriguez to discuss this with him. Other causes include obstruction or rhabdomyolysis because he is on a statin. I will check these tests as well. 3. The patient has diabetes. This is being managed by the hospitalists 4. the patient has a mildly high potassium. I will check another level today. If still high we can hold the spironolactone for a little bit. 5. He is very mildly anemic. Most likely due to his kidney disease. History of Present Illness Reason for Consult Consult date: 01/06/22 Chief Complaint Chief complaint: Heart failure exacerbation History of Present Illness Narrative: Jhony is a very pleasant 81-year-old gentleman who has multiple medical problems including diabetes, severe congestive cardiomyopathy with an ejection fraction of 10-15%, coronary artery disease status post MT, AICD, Aortic stenosis, former hypertension,recent onset atrial fibrillation, hyper lipidemia, and BPH. the patient says he was doing pretty well until about a month ago when he developed atrial fibrillation. He was given Xarelto and amiodarone. It is unclear what is going on with his rhythm right now but his pacemaker is responsible for his rate. The patient constantly has shortness of breath. This is been going on for about 3 years since his heart has been a problem. He says that if he gets up and does anything he gets short of breath and if he tries significant exertion he is very short of breath. About 3 days ago the patient became even more short of breath. He has a little bit of a cough but mostly sinus drainage. No fevers or chills. No chest pain. No significant production of sputum. No belly issues. He is swallowing okay. At 1st he thought the shortness of breath would pass but it continued to worsen so he came into the emergency room. He was evaluated here. His chest x-ray is clear. He was given some oxygen and he feels a little better. They checked his creatinine and noted that it was higher than usual so renal consultation was requested. His creatinine is chronically elevated a little, with a baseline between 1.3 and 1.5. However today his creatinine is up to 1.8. He denies any bloody urine, foamy urine, kidney stones, or bladder infections. He has no pain with urination. He has no trouble with his urinary stream at this time. Review of Systems Constitutional: Constitutional: Reports no additional constitutional complaints Eyes: Eyes: Reports no additional eye complaints ENT: Reports system reviewed and no additional complaints, except as documented Cardiovascular: Cardiovascular: Reports no additional cardiovascular complaints Respiratory: Respiratory: Reports no additional respiratory complaints Gastrointestinal: Gastrointestinal: Reports no additional gastrointestinal complaints Genitourinary: Genitourinary: Reports no additional male genitourinary complaints Musculoskeletal: Musculoskeletal: Reports no additional musculoskeletal complaints Integumentary/Breasts: Skin/Breast: Reports system
--- NOTE | 2022-01-06 11:41 | PM.IMPN ---
Progress Note: A&P Assessment and Plan (1) CHF (congestive heart failure): Qualifiers: Heart failure type: systolic Heart failure chronicity: acute on chronic Qualified Code(s): I50.23 - Acute on chronic systolic (congestive) heart failure Code(s): I50.9 - Heart failure, unspecified Status: Acute Assessment and Plan: Admit to IMU Fluid restriction Strict I's and O's daily Molina catheter in Continue diuresis Echocardiogram in a.m. Cardiology consult (2) Acute kidney injury superimposed on CKD: Code(s): N17.9 - Acute kidney failure, unspecified; N18.9 - Chronic kidney disease, unspecified Status: Acute Assessment and Plan: Nephrology consult (3) CAD (coronary artery disease): Code(s): I25.10 - Atherosclerotic heart disease of [place] coronary artery without angina pectoris Status: Acute Assessment and Plan: No chest pain Likely related to type 2 PR (4) Ischemic cardiomyopathy: Code(s): I25.5 - Ischemic cardiomyopathy Status: Acute Assessment and Plan: Patient is severely dilated left ventricle Ejection fraction calculated to be 15% as per last echocardiogram (5) Aortic stenosis: Qualifiers: Cardiac valve disease etiology: nonrheumatic Qualified Code(s): I35.0 - Nonrheumatic aortic (valve) stenosis Code(s): I35.0 - Nonrheumatic aortic (valve) stenosis Status: Acute Assessment and Plan: Status post bioprosthetic valve replacement Continue to monitor (6) BRITTNEY (obstructive sleep apnea): Code(s): G47.33 - Obstructive sleep apnea (adult) (pediatric) Status: Acute Assessment and Plan: CPAP (7) HTN (hypertension): Qualifiers: Hypertension type: essential hypertension Qualified Code(s): I10 - Essential (primary) hypertension Code(s): I10 - Essential (primary) hypertension Status: Acute Assessment and Plan: Monitor blood pressure (8) Diabetes mellitus: Qualifiers: Diabetes mellitus type: type 2 Diabetes mellitus correction insulin use: with correction use Diabetes mellitus complication status: without complication Qualified Code(s): E11.9 - Type 2 diabetes mellitus without complications; Z79.4 - parts counterman (current) use of insulin Code(s): E11.9 - Type 2 diabetes mellitus without complications Status: Acute Assessment and Plan: Holding metformin Holding Janumet Continue NovoLog Continue 70/30 Accu-Cheks AC and HS Carb consistent heart healthy diet Subjective Date/time seen: 01/06/22 11:41 Reports his breathing is better Exam Const: General: comfortable, no acute distress, well developed, alert, awake and ill appearing chronically Nutritional Appearance: average body habitus Orientation/consciousness: patient oriented x3 HENMT: Head: normal to inspection, normocephalic and atraumatic Ears: hearing grossly normal bilaterally General nose exam: Normal external nose present Face and sinus: normal facial exam and other (Nasal cannula in place) Mouth: Yes Normal oral and palatal mucosa present Eyes: General: appearance normal, both eyes and all related structures Alignment and Position: alignment normal Sclera: sclerae normal Pupils: Equal, round and reactive pupils present EOM: EOMs intact bilaterally Neck: Neck: normal visual inspection, full ROM, no lymphadenopathy, supple and no JVD Thyroid: thyroid normal Lymphatic: no lymphadenopathy noted Resp: Effort & Inspection: normal respiratory effort and able to speak in complete sentences Auscultation: wheezes Cardio: Jugular venous distension: no JVD Rate: regular rate Rhythm: regular rhythm Heart sounds: Murmur heart sound present continuous GI: Inspection: normal to inspection : General: Yes deferred Skin: General skin exam: pallor Rashes: no rashes Wounds: no wounds Neuro: General: patient oriented x3, CN's II-XI intact bilaterally and Unable
--- NOTE | 2022-01-06 12:12 | PM.CNCAR ---
Assessment and Plan Assessment and plan (1) Ischemic cardiomyopathy: Code(s): I25.5 - Ischemic cardiomyopathy Status: Acute Assessment and Plan: Known cardiomyopathy with severely depressed systolic function with an EF 15-20%. Continue medical therapy with Coreg Resume home dose of furosemide Will hold spironolactone for now because of hyperkalemia It looks like Entresto has been discontinued, I assume because of hyperkalemia as well and/or PARVEZ. Given his severe cardiomyopathy, prefer that this remains a part of his medical regimen. Restart when appropriate. Echo has been ordered (2) Aortic stenosis: Qualifiers: Cardiac valve disease etiology: nonrheumatic Qualified Code(s): I35.0 - Nonrheumatic aortic (valve) stenosis Code(s): I35.0 - Nonrheumatic aortic (valve) stenosis Status: Acute Assessment and Plan: Status post bio AVR (3) CHF (congestive heart failure): Qualifiers: Heart failure chronicity: acute on chronic Heart failure type: systolic Qualified Code(s): I50.23 - Acute on chronic systolic (congestive) heart failure Code(s): I50.9 - Heart failure, unspecified Status: Acute Assessment and Plan: Does not look like he is in decompensated heart failure on exam. No pulmonary edema or pleural effusions on chest x-ray. Will resume his home furosemide dose as above. (4) Acute kidney injury superimposed on CKD: Code(s): N17.9 - Acute kidney failure, unspecified; N18.9 - Chronic kidney disease, unspecified Status: Acute Assessment and Plan: Nephrology consulted appreciate recs History of Present Illness History of Present Illness Consult date/time: 01/06/22 12:12 Requesting physician: Italia Kraft MD Consult reason: congestive heart failure Reason For Visit: Heart failure exacerbation Narrative: Mr. Grayson is an 81 year old gentleman with history significant for coronary artery disease, ischemic cardiomyopathy with EF around 20%, and bioprosthetic aortic valve replacement 2005. He also has an ICD that was implanted in January of 2017. He was recently seen in the office by Dr. Rodriguez with a new onset of atrial fibrillation. He was started on anticoagulation and antiarrhythmic therapy with amiodarone at that time. He enters the hospital with a chief complaint of shortness of breath. Patient states that he has developed some dyspnea exertion and shortness of breath at rest over the past few days. He was at his primary care doctor's office yesterday and was directed to go to the emergency department because his oxygen saturation levels were low at that time. His chest xray in the ED did not show any infiltrates. Labratory studies are significant for Cr 1.70, BUN 51, potassium 5.6, sodium 129. BNP 9000. He received one dose of IV furosemide and currently feels improved. He is denying any chest pain, palpitations, orthopnea, PND. Review of Systems Constitutional: Constitutional: Denies fatigue, Denies lethargy and Denies weakness Eyes: Eyes: Denies blurry vision and Denies change in vision ENT: Reports Normal hearing present and Reports nasal congestion Cardiovascular: Cardiovascular: Denies chest pain, Denies diaphoresis, Denies pedal edema, Denies leg edema, Denies lightheadedness and Denies palpitations Respiratory: Respiratory: Reports chest congestion, Reports dyspnea and Reports dyspnea on exertion Gastrointestinal: Gastrointestinal: Denies constipation, Denies diarrhea, Denies nausea and Denies vomiting Genitourinary: Genitourinary: Denies hematuria, Denies urinary hesitancy, Denies urinary incontinence and Denies urinary urgency Musculoskeletal: Musculoskeletal: Denies back pain, Denies arthralgias and Denies neck pain Integumentary/Breasts: Skin/Breast: Denies dry skin, Denies pruritus and Denies unusual bruising Neurologic: Denies vertigo, Denies headache(s) and Denies numbness Psychiatric:
[2022-01-06 12:13] LABS: Anion Gap 13 mmol/L (8-16); Blood Urea Nitrogen 51 mg/dL (9-20); Calcium 8.6 mg/dL (8.4-10.2); Carbon Dioxide 16 mmol/L (22-30); Chloride 100 mmol/L (98-107); Creatine Kinase 174 U/L (55-170); Estimated CRCL calculation 34 ml/min; Estimated Glomerular Filt Rate 39; Glucose 325 mg/dL (65-110); Potassium 5.6 mmol/L (3.4-5.0); Sodium 129 mmol/L (137-145)
[2022-01-06 12:37] LABS: Creatinine Urine 103.7 mg/dL
[2022-01-06 12:44] LABS: Sodium Urine Random 6 meq/L
[2022-01-06] MEDS: SODIUM ZIRCONIUM CYCLOSILICATE 10 GM POWD.PACK PO ×2 (13:57→20:25)
[2022-01-06] MEDS: PERFLUTREN LIPID MICROSPHERES 1.5 ML VIAL DILUTED TO 10 ML TOTAL VOLUME IV PUSH (14:02)
--- NOTE | 2022-01-06 14:03 | IVDEFINITY ---
Prior to administration of IV Definity the patient was educated on the risks and benefits of the imaging enhancing agent including potential adverse side effects. The patient verbalized understanding. Allergies were verified. No exclusion criteria were identified and at least one of the following inclusion criteria were met: 1) physician request, 2) patient technically difficult to image (per the [place] [employer] guidelines of two or more segments not discernable within the apical view), or 3) questionable left ventricular function. ?
[2022-01-06] MEDS: BENZOCAINE/MENTHOL (*BKC) 18 EA LOZENGE 1 LOZENGE PO (14:41)
[2022-01-06 16:36] LABS: Glucose Point of Care 314 mg/dl (65-105)
[2022-01-06] MEDS: INSULIN ASPART MIX 70/30 100 UNITS/ML 26 UNITS SUB-Q (17:29)
[2022-01-06] MEDS: RIVAROXABAN 20 MG TABLET PO (17:30)
[2022-01-06 18:46] LABS: Total Protein Urine Random 48 mg/dL; Ur Ttl Prot Creatinine Ratio 0.46 mg/mg (0-0.20)
[2022-01-06] MEDS: FUROSEMIDE INJ 40 MG/4 ML VIAL 20 MG IV PUSH (19:03)
[2022-01-06 19:17] LABS: Potassium 5.4 mmol/L (3.4-5.0)
[2022-01-06] MEDS: DULoxetine HCL 30 MG CAPSULE.DR PO (20:25)
[2022-01-06 20:45] LABS: Glucose Point of Care 278 mg/dl (65-105)
[2022-01-06 23:35] LABS: Potassium 5.2 mmol/L (3.4-5.0)
[2022-01-07] VITALS (11 sets, daily range): BP systolic 97–103; BP diastolic 60–64; PULSE 70–76; RESP 16–20; TEMP 36.2–37.2; O2SAT 92–98
[2022-01-07 06:40] LABS: Anion Gap 12 mmol/L (8-16); Blood Urea Nitrogen 63 mg/dL (9-20); Calcium 8.9 mg/dL (8.4-10.2); Carbon Dioxide 17 mmol/L (22-30); Chloride 101 mmol/L (98-107); Estimated CRCL calculation 29 ml/min; Estimated Glomerular Filt Rate 32; Glucose 228 mg/dL (65-110); Phosphorus 4.2 mg/dL (2.5-4.5); Potassium 4.7 mmol/L (3.4-5.0); Sodium 130 mmol/L (137-145)
[2022-01-07 07:47] LABS: Glucose Point of Care 218 mg/dl (65-105)
[2022-01-07] MEDS: INSULIN ASPART MIX 70/30 100 UNITS/ML 30 UNITS SUB-Q (08:25)
[2022-01-07] MEDS: carvediloL 6.25 MG TABLET PO ×2 (08:33→20:24)
[2022-01-07] MEDS: ASPIRIN 81 MG CHEWABLE TABLET PO (08:33)
[2022-01-07] MEDS: PRAVASTATIN SODIUM 20 MG TABLET 80 MG PO (08:33)
[2022-01-07] MEDS: TAMSULOSIN HCL 0.4 MG CAPSULE PO (08:33)
[2022-01-07] MEDS: FUROSEMIDE 40 MG TABLET PO (08:33)
[2022-01-07] MEDS: AMIODARONE HCL 200 MG TABLET PO (08:33)
[2022-01-07] MEDS: SACUBITRIL/VALSARTAN 12-13 MG TABLET 1 TAB PO (08:58)
--- NOTE | 2022-01-07 09:55 | PM.IMPN ---
Progress Note: A&P Assessment and Plan (1) CHF (congestive heart failure): Qualifiers: Heart failure type: systolic Heart failure chronicity: acute on chronic Qualified Code(s): I50.23 - Acute on chronic systolic (congestive) heart failure Code(s): I50.9 - Heart failure, unspecified Status: Acute Assessment and Plan: Appreciate Cardiology input, will resume Entresto. Monitor kidney function and electrolytes (2) Acute kidney injury superimposed on CKD: Code(s): N17.9 - Acute kidney failure, unspecified; N18.9 - Chronic kidney disease, unspecified Status: Acute Assessment and Plan: Nephrology consult -question new baseline. Will monitor electrolytes and kidney function (3) CAD (coronary artery disease): Code(s): I25.10 - Atherosclerotic heart disease of [place] coronary artery without angina pectoris Status: Acute Assessment and Plan: No chest pain Likely related to type 2 [place] (4) Ischemic cardiomyopathy: Code(s): I25.5 - Ischemic cardiomyopathy Status: Acute Assessment and Plan: Patient is severely dilated left ventricle Ejection fraction calculated to be 15% as per last echocardiogram (5) Aortic stenosis: Qualifiers: Cardiac valve disease etiology: nonrheumatic Qualified Code(s): I35.0 - Nonrheumatic aortic (valve) stenosis Code(s): I35.0 - Nonrheumatic aortic (valve) stenosis Status: Acute Assessment and Plan: Status post bioprosthetic valve replacement Continue to monitor (6) BRITTNEY (obstructive sleep apnea): Code(s): G47.33 - Obstructive sleep apnea (adult) (pediatric) Status: Acute Assessment and Plan: CPAP (7) HTN (hypertension): Qualifiers: Hypertension type: essential hypertension Qualified Code(s): I10 - Essential (primary) hypertension Code(s): I10 - Essential (primary) hypertension Status: Acute Assessment and Plan: Monitor blood pressure (8) Diabetes mellitus: Qualifiers: Diabetes mellitus type: type 2 Diabetes mellitus assisted insulin use: with mycology teacher use Diabetes mellitus complication status: without complication Qualified Code(s): E11.9 - Type 2 diabetes mellitus without complications; Z79.4 - paper sealer (current) use of insulin Code(s): E11.9 - Type 2 diabetes mellitus without complications Status: Acute Assessment and Plan: Holding metformin Holding Janumet Continue NovoLog Continue 70/30 Accu-Cheks AC and HS Carb consistent heart healthy diet Subjective Date/time seen: 01/07/22 09:55 Breathing better Exam Narrative: Patient is sitting in a stretcher. Const: General: comfortable, no acute distress, well developed, alert, awake and ill appearing chronically Nutritional Appearance: average body habitus Orientation/consciousness: patient oriented x3 HENMT: Head: normal to inspection, normocephalic and atraumatic Ears: hearing grossly normal bilaterally General nose exam: Normal external nose present Face and sinus: normal facial exam and other (Nasal cannula in place) Mouth: Yes Normal oral and palatal mucosa present Eyes: General: appearance normal, both eyes and all related structures Alignment and Position: alignment normal Sclera: sclerae normal Pupils: Equal, round and reactive pupils present EOM: EOMs intact bilaterally Neck: Neck: normal visual inspection, full ROM, no lymphadenopathy, supple and no JVD Thyroid: thyroid normal Lymphatic: no lymphadenopathy noted Resp: Effort & Inspection: normal respiratory effort and able to speak in complete sentences Auscultation: wheezes Cardio: Jugular venous distension: no JVD Rate: regular rate Rhythm: regular rhythm Heart sounds: Murmur heart sound present continuous GI: Inspection: normal to inspection : General: Yes deferred Skin: General skin exam: pallor Rashes: no rashes Wounds: no wounds Neuro: General: rod
--- NOTE | 2022-01-07 11:28 | PC.NURSE ---
Removed benson catheter without difficulty. Patient tolerated well.
[2022-01-07 11:42] LABS: Glucose Point of Care 223 mg/dl (65-105)
--- NOTE | 2022-01-07 11:43 | PM.PNCARD ---
Progress Note: A&P Additional Plan 81-year-old man who appears to have end-stage ischemic cardiomyopathy. There are no other modalities to offer him in terms of revascularization or valve procedures. I will plan on resuming his Entresto and I increased the dosage back today to . His baseline dosage was 49/51. He has tolerated this well and significantly benefitted from it symptomatic Priscila. Spironolactone has been placed on hold because of his hyperkalemia. He understands very well the discussion regarding DNR orders and will think about whether he wishes to have his therapy turned off for his ICD. Tito Rodriguez MD [facility] Subjective Date/time seen: Date of service: 01/07/22 11:43 Interval history: Follow-up visit in this 81-year-old man with ischemic heart disease, previous revascularization as well as aortic valve replacement he now has severe end-stage ischemic cardiomyopathy with very low ejection fraction and symptoms of low cardiac output. His shortness of breath on admission in my opinion was more symptoms of low output than anything else his admission chest x-ray did not look congested at all. He feels better this morning after Entresto was resumed yesterday. He has chosen and DNR orders on his chart which is appropriate. Along those lines I did have a discussion with him today about turning off the defibrillator functions of his device if he does not wish to be resuscitated going forward. He and his family will think about that. Exam Const: General: comfortable and no acute distress Other: Pleasant elderly gentleman sitting in the chair eating lunch HENMT: Head: normal to inspection Eyes: General: appearance normal, both eyes and all related structures Neck: Neck: supple and no JVD Resp: Auscultation: clear to auscultation bilaterally Cardio: Rate: regular rate Rhythm: regular rhythm Heart sounds: Murmur heart sound present systolic Other: paced rhythm Urinary Catheter: Urinary Catheter: patent and draining Skin: General skin exam: normal color Neuro: Cranial nerves: Yes Normal hearing present Cognition (Neuro): normal cognition Extrem: General: normal to inspection Psych: Mental Status: mental status grossly normal Objective Data Vital Signs Vital Signs: Vital Signs - 24 hr 01/06/22 12:00 01/06/22 13:43 01/06/22 16:00 Temperature 36.6 C Pulse Rate 70 68 72 Respiratory Rate 18 Blood Pressure 112/58 L Pulse Oximetry 100 01/06/22 20:00 01/06/22 20:25 01/06/22 22:00 Temperature 36.8 C Pulse Rate 71 72 72 Respiratory Rate 16 16 Blood Pressure 119/72 Pulse Oximetry 99 99 01/06/22 22:58 01/07/22 00:00 01/07/22 04:00 Temperature Pulse Rate 71 70 Respiratory Rate Blood Pressure Pulse Oximetry 98 01/07/22 05:37 01/07/22 08:00 01/07/22 08:24 Temperature 37.2 C Pulse Rate 73 74 Respiratory Rate 16 Blood Pressure 103/62 Pulse Oximetry 94 96 Intake/Output Intake/Output: Intake & Output 01/04/22 01/05/22 01/06/22 01/07/22 23:59 23:59 23:59 23:59 Intake Total 1617 340 Output Total 1050 1400 Balance 567 -1060 Meds/Results Medications: Active Medications Generic Name Dose Route Start Last Admin Trade Name Freq PRN Reason Stop Dose Admin Albuterol 5 mg 01/06/22 00:22 01/06/22 06:11 Albuterol Sulfate Neb 2.5 Mg/3 Ml Inh INHALATION 5 mg Q6HRT PRN Administration Shortness Of Breath Amiodarone HCl 200 mg 01/06/22 08:00 01/07/22 08:33 Amiodarone Hcl 200 Mg Tablet PO 200 mg DAILY@0800 [facility] Administration Aspirin 81 mg 01/06/22 08:00 01/07/22 08:33 Aspirin 81 Mg Chewable Tablet PO 81 mg DAILY@0800 [facility] Administration Benzocaine 1 lozenge 01/06/22 11:43 01/06/22 14:41 Benzocaine/Menthol (*Bkc) 18 Ea Lozenge PO 1 lozenge PRN PRN Administration Sore Throat Carvedilol 6.25 mg 01/06/22 09:00 01/07/22 08:33 Carvedilol 6.25 Mg Tablet PO 6.25 mg Q12HR [facility] Admini
--- NOTE | 2022-01-07 13:07 | PM.PNNEP ---
Progress Note: A&P Additional Plan 1. Jhony has chronic kidney disease. His GFR reflects stage IIIA. Etiology of this is probably due to hypertension, diabetes, and chronic pre renal azotemia from his very poorly functioning heart. Renal ultrasound is unremarkable. Urine electrolytes are pre renal. Since urinalysis is not back yet. He has a small amount of protein in the urine: 460. 2. The patient has a mild rise in his creatinine. Most likely this is due to a poorly functioning heart. Will check a CPK to be complete. I talked with Dr. Rodriguez. We discussed the possibility of Dobutamine. He says that he is in discussions about possible hospice and the family is going to [place]ance over this. So I will hold off on dobutamine for now. 3. The patient has diabetes. This is being managed by the hospitalists 4. the patient had a mildly high potassium. Resolved. 5. He is very mildly anemic. Most likely due to his kidney disease. Subjective Date/time seen: 01/07/22 13:07 Interval history: The patient feels better. He has no chest pain . Breathing is better. Review of Systems Cardiovascular: Cardiovascular: Reports no additional cardiovascular complaints Respiratory: Respiratory: Reports no additional respiratory complaints Gastrointestinal: Gastrointestinal: Reports no additional gastrointestinal complaints Genitourinary: Genitourinary: Reports no additional male genitourinary complaints Exam Narrative: WDWN in NAD skin no rash head ncat lungs clear cor reg no rub abd BS+ nontender and soft ext no edema. Objective Data Vital Signs Vital Signs: Vital Signs - 24 hr 01/06/22 13:43 01/06/22 16:00 01/06/22 20:00 Temperature 36.6 C Pulse Rate 68 72 71 Respiratory Rate 18 16 Blood Pressure 112/58 L Pulse Oximetry 100 99 01/06/22 20:25 01/06/22 22:00 01/06/22 22:58 Temperature 36.8 C Pulse Rate 72 72 Respiratory Rate 16 Blood Pressure 119/72 Pulse Oximetry 99 98 01/07/22 00:00 01/07/22 04:00 01/07/22 05:37 Temperature 37.2 C Pulse Rate 71 70 73 Respiratory Rate 16 Blood Pressure 103/62 Pulse Oximetry 94 01/07/22 08:00 01/07/22 08:24 Temperature Pulse Rate 74 Respiratory Rate Blood Pressure Pulse Oximetry 96 Intake/Output Intake/Output: Intake & Output 01/04/22 01/05/22 01/06/22 01/07/22 23:59 23:59 23:59 23:59 Intake Total 1617 580 Output Total 1050 1400 Balance 567 -820 Meds/Results Medications: Active Medications Generic Name Dose Route Start Last Admin Trade Name Freq PRN Reason Stop Dose Admin Albuterol 5 mg 01/06/22 00:22 01/06/22 06:11 Albuterol Sulfate Neb 2.5 Mg/3 Ml Inh INHALATION 5 mg Q6HRT PRN Administration Shortness Of Breath Amiodarone HCl 200 mg 01/06/22 08:00 01/07/22 08:33 Amiodarone Hcl 200 Mg Tablet PO 200 mg DAILY@0800 [facility] Administration Aspirin 81 mg 01/06/22 08:00 01/07/22 08:33 Aspirin 81 Mg Chewable Tablet PO 81 mg DAILY@0800 [facility] Administration Benzocaine 1 lozenge 01/06/22 11:43 01/06/22 14:41 Benzocaine/Menthol (*Bkc) 18 Ea Lozenge PO 1 lozenge PRN PRN Administration Sore Throat Carvedilol 6.25 mg 01/06/22 09:00 01/07/22 08:33 Carvedilol 6.25 Mg Tablet PO 6.25 mg Q12HR [facility] Administration Duloxetine HCl 30 mg 01/06/22 21:00 01/06/22 20:25 Duloxetine Hcl 30 Mg Capsule.Dr PO 30 mg HS [facility] Administration Furosemide 40 mg 01/07/22 09:00 01/07/22 08:33 Furosemide 40 Mg Tablet PO 40 mg DAILY [facility] Administration Ceftriaxone Sodium 2 gm/ 100 mls @ 200 mls/hr 01/06/22 22:00 01/06/22 22:00 Sodium Chloride IVPB Infused Q24H [facility] Infusion Azithromycin 500 mg in 250 mls @ 250 mls/hr 01/06/22 22:00 01/06/22 22:04 Zithromax IVPB 250 mls/hr Q24H [facility] Administration Insulin Aspart 30 units 01/06/22 08:00 01/07/22 08:25 Insulin Aspart Mix 70/30 100 Units/Ml SUB-Q 30 uni
[2022-01-07 16:31] LABS: Glucose Point of Care 203 mg/dl (65-105)
[2022-01-07] MEDS: INSULIN ASPART MIX 70/30 100 UNITS/ML 26 UNITS SUB-Q (16:55)
[2022-01-07] MEDS: RIVAROXABAN 20 MG TABLET PO (16:57)
[2022-01-07] MEDS: SACUBITRIL/VALSARTAN 24-26 MG TABLET 1 TAB PO (20:25)
[2022-01-07] MEDS: DULoxetine HCL 30 MG CAPSULE.DR PO (20:25)
[2022-01-07 20:38] LABS: Glucose Point of Care 212 mg/dl (65-105)
[2022-01-07] MEDS: cefTRIAXone 2 GM in SODIUM CHLORIDE 0.9% IV 100 ML 200 ML IVPB (21:19)
[2022-01-08] VITALS: PULSE 72
[2022-01-08 04:00] VITALS: PULSE 70
[2022-01-08 06:00] VITALS: BP 104/70; PULSE 75; RESP 18; TEMP 36.1; O2SAT 95
[2022-01-08 06:32] LABS: Albumin Level 3.8 g/dL (3.5-5.1); Anion Gap 9 mmol/L (8-16); Blood Urea Nitrogen 64 mg/dL (9-20); Calcium 8.7 mg/dL (8.4-10.2); Carbon Dioxide 26 mmol/L (22-30); Chloride 102 mmol/L (98-107); Creatine Kinase 298 U/L (55-170); Estimated CRCL calculation 36 ml/min; Estimated Glomerular Filt Rate 42; Glucose 97 mg/dL (65-110); Phosphorus 3.4 mg/dL (2.5-4.5); Sodium 137 mmol/L (137-145)
[2022-01-08 07:58] LABS: Glucose Point of Care 99 mg/dl (65-105)
[2022-01-08 08:00] VITALS: PULSE 69
[2022-01-08] MEDS: INSULIN ASPART MIX 70/30 100 UNITS/ML 30 UNITS SUB-Q (08:33)
[2022-01-08] MEDS: ASPIRIN 81 MG CHEWABLE TABLET PO (08:39)
[2022-01-08] MEDS: AMIODARONE HCL 200 MG TABLET PO (08:39)
[2022-01-08] MEDS: TAMSULOSIN HCL 0.4 MG CAPSULE PO (08:39)
[2022-01-08] MEDS: FUROSEMIDE 40 MG TABLET PO (08:39)
[2022-01-08] MEDS: carvediloL 6.25 MG TABLET PO (08:39)
[2022-01-08] MEDS: PRAVASTATIN SODIUM 20 MG TABLET 80 MG PO (08:39)
--- NOTE | 2022-01-08 10:53 | PM.PNCARD ---
Progress Note: A&P Additional Plan 81-year-old man with: Coronary artery disease valvular heart disease and severe ischemic cardiomyopathy. He is adequately compensated this morning and I believe appears to be a favorable candidate for discharge. Spent a long time talking with the patient and the family about the defibrillator and the concept of reprogrammed because of his DNR wishes at this time. For now he wishes to leave the device on. Also discussed with him sodium and fluid restriction in significant detail as it pertains to his very low ejection fraction. Renal function actually is better with increasing dosage of Entresto supporting the idea that low cardiac output is the principal reason for this. For now he is tolerating this without any spironolactone and is normokalemic. He does have office follow-up with me scheduled in several weeks in the office. Tito Rodriguez MD [facility] Subjective Date/time seen: Date of service: 01/08/22 10:53 Interval history: Follow-up visit in this 81-year-old man with: Severe ischemic cardiomyopathy with previous surgical and percutaneous revascularization as well as previous aortic valve replacement. Patient has very low ejection fraction. Admitted with symptoms of weakness and low cardiac output. Patient's medications have been adjusted because of hyperkalemia. He feels well this morning he has been ambulating in the halls hoping to be discharged. Another discussion was had with the patient and the family regarding his defibrillator programming in regards to his DNR orders. At this time he would like to not change anything Exam Const: General: comfortable and no acute distress Other: Pleasant elderly gentleman sitting in the chair eating lunch HENMT: Head: normal to inspection Eyes: General: appearance normal, both eyes and all related structures Neck: Neck: supple and no JVD Resp: Auscultation: clear to auscultation bilaterally Cardio: Rate: regular rate Rhythm: regular rhythm Heart sounds: Murmur heart sound present systolic Other: paced rhythm Urinary Catheter: Urinary Catheter: patent and draining Skin: General skin exam: normal color Neuro: Cranial nerves: Yes Normal hearing present Cognition (Neuro): normal cognition Extrem: General: normal to inspection Psych: Mental Status: mental status grossly normal Objective Data Vital Signs Vital Signs: Vital Signs - 24 hr 01/07/22 12:00 01/07/22 14:00 01/07/22 16:00 Temperature 36.2 C L Pulse Rate 71 72 75 Respiratory Rate 20 Blood Pressure 100/60 Pulse Oximetry 98 01/07/22 20:00 01/07/22 20:24 01/07/22 22:00 Temperature 36.4 C L Pulse Rate 70 72 76 Respiratory Rate 20 20 Blood Pressure 97/64 L Pulse Oximetry 92 92 01/08/22 00:00 01/08/22 04:00 01/08/22 06:00 Temperature 36.1 C L Pulse Rate 72 70 75 Respiratory Rate 18 Blood Pressure 104/70 Pulse Oximetry 95 01/08/22 08:00 Temperature Pulse Rate 69 Respiratory Rate Blood Pressure Pulse Oximetry Intake/Output Intake/Output: Intake & Output 01/05/22 01/06/22 01/07/22 01/08/22 23:59 23:59 23:59 23:59 Intake Total 1867 1170 240 Output Total 1050 1625 650 Balance 362 -672 -489 Meds/Results Medications: Active Medications Generic Name Dose Route Start Last Admin Trade Name Freq PRN Reason Stop Dose Admin Albuterol 5 mg 01/06/22 00:22 01/06/22 06:11 Albuterol Sulfate Neb 2.5 Mg/3 Ml Inh INHALATION 5 mg Q6HRT PRN Administration Shortness Of Breath Amiodarone HCl 200 mg 01/06/22 08:00 01/08/22 08:39 Amiodarone Hcl 200 Mg Tablet PO 200 mg DAILY@0800 [facility] Administration Aspirin 81 mg 01/06/22 08:00 01/08/22 08:39 Aspirin 81 Mg Chewable Tablet PO 81 mg DAILY@0800 [facility] Administration Benzocaine 1 lozenge 01/06/22 11:43 01/06/22 14:41 Benzocaine/Menthol (*Bkc) 18 Ea Lozenge PO 1 lozenge PRN PRN Administration Sore Throat Carvedilol 6
--- NOTE | 2022-01-08 11:14 | PM.DS ---
DS: Admitting Diagnosis Discharge Date January 08, 2022 Admitting Diagnosis CHF exacerbation DS: Discharge Diagnosis Discharge Diagnosis (1) CHF (congestive heart failure): Qualifiers: Heart failure type: systolic Heart failure chronicity: acute on chronic Qualified Code(s): I50.23 - Acute on chronic systolic (congestive) heart failure Code(s): I50.9 - Heart failure, unspecified Status: Acute Assessment and Plan: Appreciate Cardiology input, will resume Entresto. Monitor kidney function and electrolytes (2) Acute kidney injury superimposed on CKD: Code(s): N17.9 - Acute kidney failure, unspecified; N18.9 - Chronic kidney disease, unspecified Status: Acute Assessment and Plan: Nephrology consult -question new baseline. Will monitor electrolytes and kidney function (3) CAD (coronary artery disease): Code(s): I25.10 - Atherosclerotic heart disease of [place] coronary artery without angina pectoris Status: Acute Assessment and Plan: No chest pain Likely related to type 2 [place] (4) Ischemic cardiomyopathy: Code(s): I25.5 - Ischemic cardiomyopathy Status: Acute Assessment and Plan: Patient is severely dilated left ventricle Ejection fraction calculated to be 15% as per last echocardiogram (5) Aortic stenosis: Qualifiers: Cardiac valve disease etiology: nonrheumatic Qualified Code(s): I35.0 - Nonrheumatic aortic (valve) stenosis Code(s): I35.0 - Nonrheumatic aortic (valve) stenosis Status: Acute Assessment and Plan: Status post bioprosthetic valve replacement Continue to monitor (6) BRITTNEY (obstructive sleep apnea): Code(s): G47.33 - Obstructive sleep apnea (adult) (pediatric) Status: Acute Assessment and Plan: CPAP (7) HTN (hypertension): Qualifiers: Hypertension type: essential hypertension Qualified Code(s): I10 - Essential (primary) hypertension Code(s): I10 - Essential (primary) hypertension Status: Acute Assessment and Plan: Monitor blood pressure (8) Diabetes mellitus: Qualifiers: Diabetes mellitus type: type 2 Diabetes mellitus shelter insulin use: with shelter use Diabetes mellitus complication status: without complication Qualified Code(s): E11.9 - Type 2 diabetes mellitus without complications; Z79.4 - nursing home (current) use of insulin Code(s): E11.9 - Type 2 diabetes mellitus without complications Status: Acute Assessment and Plan: Holding metformin Holding Janumet Continue NovoLog Continue 70/30 Accu-Cheks AC and HS Carb consistent heart healthy diet DS: Summary Hospital Course Hospital Course: See plan discharge diagnoses Time Spent with Patient Time attestation: Total time spent providing and/or coordinating discharge services: Exam Narrative: Patient is sitting in a stretcher. Const: General: comfortable, no acute distress, well developed, alert, awake and ill appearing chronically Nutritional Appearance: average body habitus Orientation/consciousness: patient oriented x3 HENMT: Head: normal to inspection, normocephalic and atraumatic Ears: hearing grossly normal bilaterally General nose exam: Normal external nose present Face and sinus: normal facial exam and other (Nasal cannula in place) Mouth: Yes Normal oral and palatal mucosa present Eyes: General: appearance normal, both eyes and all related structures Alignment and Position: alignment normal Sclera: sclerae normal Pupils: Equal, round and reactive pupils present EOM: EOMs intact bilaterally Neck: Neck: normal visual inspection, full ROM, no lymphadenopathy, supple and no JVD Thyroid: thyroid normal Lymphatic: no lymphadenopathy noted Resp: Effort & Inspection: normal respiratory effort and able to speak in complete sentences Auscultation: wheezes Cardio: Jugular venous distension: no JVD Rate: regular rate Rhythm: regul
== END 2022-01-08 12:05 | disposition home or self-care (01) | DRG 280 ==
LOC: ANHED 20:36 → ANH3MEDSUR 01-06 09:42
PROVIDERS: Internal Medicine Nephrology; Physician Assistant; Admitting Provider Internal Medicine; Emergency Provider Emergency Medicine; PCP Internal Medicine; Visit Provider Chiropractor
DX: I13.0 Hypertensive heart and chronic kidney disease with heart failure and stage 1 through stage 4 chronic kidney disease, or unspecified chronic kidney disease (principal); I50.23 Acute on chronic systolic (congestive) heart failure; I21.A1 Myocardial infarction type 2; N17.9 Acute kidney failure, unspecified; E11.22 Type 2 diabetes mellitus with diabetic chronic kidney disease; N18.31 Chronic kidney disease, stage 3a; Z20.822 Contact with and (suspected) exposure to COVID-19; I25.10 Atherosclerotic heart disease of native coronary artery without angina pectoris; I25.5 Ischemic cardiomyopathy; I35.0 Nonrheumatic aortic (valve) stenosis; D63.1 Anemia in chronic kidney disease; G47.33 Obstructive sleep apnea (adult) (pediatric); E87.5 Hyperkalemia; E78.5 Hyperlipidemia, unspecified; Z95.2 Presence of prosthetic heart valve; Z79.4 Long term (current) use of insulin; Z95.1 Presence of aortocoronary bypass graft; I25.2 Old myocardial infarction; Z95.810 Presence of automatic (implantable) cardiac defibrillator; Z79.82 Long term (current) use of aspirin
CPT/HCPCS: 36415; 71046; 76775; 80048; 80053; 80069; 82550; 82570; 82948; 83880; 84132; 84156; 84300; 84484; 85025; 85055; 85610; 85730; 87040; 87502; 93005; 93306; 94640; 96365; 96366; 96367; 96375; 99285; A9270; C8929; C9803; G0378; J0456; J0696; J1815; J1940; Q9957; U0003; U0005

== ENCOUNTER 2022-02-16 09:32 | Outpatient (CLI) | payer MEDICARE, SELFPAY ==
[2022-02-16 10:00] VITALS: PULSE 84; O2SAT 94
[2022-02-16 10:05] VITALS: PULSE 140; O2SAT 92
[2022-02-16 10:15] VITALS: PULSE 91; O2SAT 95
--- NOTE | 2022-02-16 10:24 | HOMEO2EVAL ---
Evaluation was performed at [facility] Home Oxygen Evaluation RC: Home Oxygen (O2) Evaluation Start: 02/16/22 10:13 Freq: Status: Active Protocol: RPE Activity Type Activity Date Activity User E-sign Co-sign Detail Recorded Client Recorded Date Recorded By Document 02/16/22 10:00 TEJ [email or web address] 02/16/22 10:23 TEJ Document 02/16/22 10:05 TEJ [email or web address] 02/16/22 10:23 TEJ Document 02/16/22 10:15 TEJ [email or web address] 02/16/22 10:23 TEJ 02/16/22 02/16/22 02/16/22 10:00 10:05 10:15 Home O2 Evaluation Test Phase Resting Exercise Resting Oxygen Delivery Room Air Room Air Room Air Pulse Oximetry (90-100 %) 94 92 95 Pulse Rate (60-100 beats/min) 84 140 H 91 Ambulation Distance (feet) 400 Ambulation Distance (meters) 121.91 Treatment Charges O2 Evaluation - Outpatient
--- NOTE | 2022-02-16 10:25 | PCRCNOTE ---
Home O2 eval faxed to office staff.
== END 2022-02-16 09:33 | disposition home or self-care (01) ==
LOC: ANHPFT 09:34
PROVIDERS: PCP Internal Medicine; Visit Provider Specialist
DX: I25.5 Ischemic cardiomyopathy (principal)
CPT/HCPCS: 94618